=== PATIENT | male | born 1990 | race Two or more races ===

== ENCOUNTER 2016-07-10 14:06 | Emergency (ER) | payer SELFPAY ==
[~2016-07-10] VITALS: Ht 175.3 cm; Wt 90.7 kg
[2016-07-10] MEDS ORDERED: IV NORMAL SALINE 1000ML BAG 1,000 ML IV ONE (14:15)
[2016-07-10] MEDS ORDERED: CEFAZOLIN 1GM IVPB FOR OMNI 50 ML IV ONE (14:15)
--- NOTE | 2016-07-10 14:32 | RAD ---
EXAM: Right knee, 3 views. HISTORY: Pain. COMPARISON: None. FINDINGS: Frontal, lateral and oblique views of the right knee are obtained. There is no fracture, dislocation or subluxation. There is infrapatellar soft tissue gas. There is no joint effusion. IMPRESSION: 1. Right infrapatellar soft tissue gas. Correlate for a laceration injury. 2. No acute osseous finding.
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
[2016-07-10] MEDS ORDERED: MORPHINE SULFATE 4 MG/ML DISP.SYRIN. IV ONE (14:45)
[2016-07-10] MEDS ORDERED: DIPHTH,PERTUSS(ACELL),TET TOX 0.5 ML DISP.SYRIN. VAX IM ONE (14:45)
[2016-07-10] MEDS ORDERED: HYDROMORPHONE 2 MG/ML VIAL. IV ONE ×2 (15:15→17:15)
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
[2016-07-10 16:00] VITALS: BP 120/75
== END 2016-07-10 16:11 | disposition short-term general hospital (02) ==
LOC: ER 14:06
DX: S62.606B Fracture of unspecified phalanx of right little finger, initial encounter for open fracture (principal); S81.001A Unspecified open wound, right knee, initial encounter; Z88.8 Allergy status to other drugs, medicaments and biological substances; W34.00XA Accidental discharge from unspecified firearms or gun, initial encounter; Y93.89 Activity, other specified; Y99.8 Other external cause status; Y92.89 Other specified places as the place of occurrence of the external cause
CPT/HCPCS: 73130; 73562; 96361; 96365; 96375; 96376; 99285; J0690; J1170; J2270; J7030